=== PATIENT | female | born 1955 | race Two or more races ===

== ENCOUNTER 2019-02-02 05:35 | Day surgery (SDC) | payer OTHER ==
[2019-02-02] MEDS ORDERED: LIDOCAINE HCL/MPF 1% 30 ML VIAL IJ ONE (06:30)
[2019-02-02] MEDS ORDERED: ANESTHESIA TRAY IN PYXIS 1 EA TRAY MC ONE (06:30)
[2019-02-02] MEDS ORDERED: methylPREDNISolone ACETATE 80 MG/ML VIAL ONE (06:30)
[2019-02-02] MEDS ORDERED: EPINEPHRINE (1:1000) 1 MG/ML AMPUL ONE (06:31)
[2019-02-02] MEDS ORDERED: HYDROMORPHONE INJ 2 MG/ML DISP.SYRIN ONE (06:44)
[2019-02-02] MEDS ORDERED: ROCURONIUM BROMIDE 50 MG/5 ML ONE ×2 (06:44→07:01)
[2019-02-02] MEDS ORDERED: FENTANYL PF 100MCG/2ML AMPUL ONE ×2 (06:44→07:00)
[2019-02-02] MEDS ORDERED: MIDAZOLAM HCL 2 MG/2ML VIAL ONE (06:44)
== END 2019-02-02 16:00 | disposition home or self-care (01) ==
LOC: DS 05:35
PROVIDERS: ATTEND Specialist
DX: M75.121 Complete rotator cuff tear or rupture of right shoulder, not specified as traumatic (principal); M75.41 Impingement syndrome of right shoulder; I10 Essential (primary) hypertension; E78.00 Pure hypercholesterolemia, unspecified; Z83.3 Family history of diabetes mellitus; E78.2 Mixed hyperlipidemia; Z79.899 Other long term (current) drug therapy
CPT/HCPCS: 23412; 29822; 88304; 88311; A4217; A4565; J0171; J0690; J1100; J1885; J2405; J2704; J2710; J3010; J3490 ×2; J1040; J1170; J2250